=== PATIENT | female | born 1980 | race Caucasian/White ===

== ENCOUNTER 2022-02-18 19:52 | Emergency (ER) | payer OTHER, SELFPAY ==
[2022-02-18] MEDS ORDERED: Cyclobenzaprine 10 MG TAB ONE (20:24)
[2022-02-18] MEDS ORDERED: Ibuprofen 800 MG TAB ONE (20:24)
== END 2022-02-18 21:17 | disposition home or self-care (01) ==
LOC: BURERS 19:52
DX: S16.1XXA Strain of muscle, fascia and tendon at neck level, initial encounter (principal); S20.212A Contusion of left front wall of thorax, initial encounter; S50.812A Abrasion of left forearm, initial encounter; S50.811A Abrasion of right forearm, initial encounter; V89.2XXA Person injured in unspecified motor-vehicle accident, traffic, initial encounter
CPT/HCPCS: 72040